=== PATIENT | female | born 1985 | race Asian ===

== ENCOUNTER 2017-07-12 22:28 | Emergency (ER) | payer SELFPAY ==
--- NOTE | 2017-07-12 22:37 | EDM.PDOC ---
ED HPI GENERAL MEDICAL PROBLEM - General Chief Complaint: Skin Complaint Stated Complaint: LT SIDE BUG BITE Time Seen by Provider: 07/12/17 22:30 - History of Present Illness INITIAL COMMENTS - FREE TEXT/NARRATIVE: HISTORY AND PHYSICAL: History of present illness: Patient 32-year-old female presents with a concern of a cutaneous lesion to her right abdomen this is read excoriated in Center tender and swollen she states that over the last several days she denies fever chills nausea vomiting does not recall an insect bite she states she did scratch at it center on an earlier occasion Review of systems: As per history of present illness and below otherwise all systems reviewed and negative. Past medical history: As per history of present illness and as reviewed below otherwise noncontributory. Surgical history: As per history of present illness and as reviewed below otherwise noncontributory. Social history: No reported history of drug or alcohol abuse. Family history: As per history of present illness and as reviewed below otherwise noncontributory. Physical exam: HEENT: Atraumatic, normocephalic, pupils reactive, negative for conjunctival pallor or scleral icterus, mucous membranes moist, throat clear, neck supple, nontender, trachea midline. Lungs: Clear to auscultation, breath sounds equal bilaterally, chest nontender. Heart: S1S2, regular, negative for clicks, rubs, or JVD. Abdomen: Soft, nondistended, patient has approximately 3 cm in diameter erythematous area with induration and a central area of excoriation is no fluctuance is is slightly warm to touch and tender. Negative for masses or hepatosplenomegaly. Negative for costovertebral tenderness. Pelvis: Stable nontender. Genitourinary: Deferred. Rectal: Deferred. Extremities: Atraumatic, negative for cords or calf pain. Neurovascular unremarkable. Neuro: Awake, alert, oriented. Cranial nerves II through XII unremarkable. Cerebellum unremarkable. Motor and sensory unremarkable throughout. Exam nonfocal. Diagnostics: None Therapeutics: None Impression: #1 cellulitis Definitive disposition and diagnosis as appropriate pending reevaluation and review of above. ED ROS GENERAL - Review of Systems Review Of Systems: ROS reveals no pertinent complaints other than HPI. ED EXAM, SKIN/RASH Exam: See Below (See dictation) Departure - Departure Time of Disposition: 22:36 Disposition: Home, Self-Care 01 Condition: Good Clinical Impression: Cellulitis - Discharge Information Additional Instructions: The following information is given to patients seen in the emergency department who are being discharged to home. This information is to outline your options for follow-up care. We provide all patients seen in our emergency department with a follow-up referral. The need for follow-up, as well as the timing and circumstances, are variable depending upon the specifics of your emergency department visit. If you don't have a primary care physician on staff, we will provide you with a referral. We always advise you to contact your personal physician following an emergency department visit to inform them of the circumstance of the visit and for follow-up with them and/or the need for any referrals to a consulting specialist. The emergency department will also refer you to a specialist when appropriate. This referral assures that you have the opportunity for followup care with a specialist. All of these measure are taken in an effort to provide you with optimal care, which includes your followup. Under all circumstances we always encourage you to contact your private physician who remains a resource for coordinating your care. When calling for followup care, please make the office aware that this follow-up is from your recent emergency room visit. If for any reason you are refused follow-up, please contact the [facility] emergency department at and asked to speak to the emergency department charge nurse. [facility] - General Surgery Professional Building [address] [place] [address], [address] [place] [address] Bactrim clindamycin as prescribed follow-up Gen. surgery clinic above call to schedule routine appointment return as needed as discussed
[2017-07-12 22:39] VITALS: BP 111/79
[2017-07-12] MEDS ORDERED: Sulfamethoxazole/Trimethoprim 800-160 MG Tab PO ONE (22:40)
[2017-07-12] MEDS ORDERED: Clindamycin HCl 150 MG Cap PO ONE ×2 (22:41→22:52)
== END 2017-07-12 22:57 | disposition home or self-care (01) ==
LOC: MW.ED 22:28
DX: L03.311 Cellulitis of abdominal wall (principal)
CPT/HCPCS: 99282; A9270

== ENCOUNTER 2019-09-17 17:27 | Emergency (ER) | payer SELFPAY ==
[2019-09-17 17:32] VITALS: PULSE 79
[2019-09-17] MEDS ORDERED: Silver Sulfadiazine 1% Crm 50 GM Tube TOP ONE (17:37)
--- NOTE | 2019-09-17 17:44 | EDM.PDOC ---
ED HPI GENERAL MEDICAL PROBLEM - General Chief Complaint: Skin Complaint Stated Complaint: ALLERGIC REACTION Time Seen by Provider: 09/17/19 17:28 Source of Information: Reports: Patient History Limitations: Reports: No Limitations - History of Present Illness INITIAL COMMENTS - FREE TEXT/NARRATIVE: HISTORY AND PHYSICAL: History of present illness: She has a 34-year-old female presents to the ED today with concern of redness of the hands after using a chemical while at work 4 days ago. 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 Patient states she's been applying Neosporin to the hands without relief of symptoms. Patient denies any other symptoms or concerns. Patient denies fever, chills, chest pain, shortness of breath, or cough. Denies headache, neck stiff ness, change in vision, syncope, or near syncope. Denies nausea, vomiting, abdominal pain, diarrhea, constipation, or dysuria. Has not noted any blood in urine or stool. Patient has been eating and drinking appropriately. Review of systems: As per history of present illness and below otherwise all systems reviewed and negative. Past medical history: As per history of present illness and as reviewed below otherwise noncontributory. Surgical history: As per history of present illness and as reviewed below otherwise noncontributory. Social history: See social history for further information Family history: As per history of present illness and as reviewed below otherwise noncontributory. Physical exam: General: Patient is alert, oriented, and in no acute distress. Patient sitting comfortably on exam table. HEENT: Atraumatic, normocephalic, pupils equal and reactive bilaterally, negative for conjunctival pallor or scleral icterus, mucous membranes moist, TMs normal bilaterally, throat clear, neck supple, nontender, trachea midline. No drooling or trismus noted. No meningeal signs. No hot potato voice noted. Lungs: Clear to auscultation, breath sounds equal bilaterally, chest nontender. Heart: S1S2, regular rate and rhythm without overt murmur Abdomen: Soft, nondistended, nontender. Negative for masses or hepatosplenomegaly. Negative for costovertebral tenderness. Pelvis: Stable nontender. Genitourinary: Deferred. Rectal: Deferred. Skin: See extremities. Otherwise, Intact, warm, dry. No lesions or rashes noted. Extremities: Negative for cords or calf pain. Neurovascular unremarkable. The dorsum of bilateral hands have an erythematous macular rash but not involving the digits. Patient has full range of motion of the complete hand and wrist bilaterally. Radial pulses are grossly intact bilaterally with capillary refill less than 2 seconds. Neuro: Awake, alert, oriented. Cranial nerves II through XII unremarkable. Cerebellum unremarkable. Motor and sensory unremarkable throughout. Exam nonfocal. Notes: Dr. Griffin directly involved in patient care.Discussed the importance for follow -up with a primary care provider or with general surgery. Voices understanding and is agreeable to plan of care. Denies any further questions or concerns at this time. Diagnostics: None Therapeutics: silver nitrate Prescription: None Impression: Chemical dermatitis Plan: 1. You can alternate ibuprofen and Tylenol as directed for pain and discomfort. 2. Follow-up with a primary care provider or general surgery as discussed. Return to the ED as needed and as discussed. Definitive disposition and diagnosis as appropriate pending reevaluation and review of above. bilateral hands Pain Score (Numeric/FACES): 8 - Related Data Allergies Allergy/AdvReac Type Severity Reaction Status Date / Time No Known Allergies Allergy Verified 09/17/19 17:29 Home Meds: Home Meds . [No Known Home Meds] 07/12/17 [History] Past Medical History - Past Health History Medical/Surgical History: Denies Medical/Surgical History - Infectious Disease History Infectious Disease History: Reports: None Social & Family History - Family History Family Medical History: Noncontributory - Tobacco Use Smoking Status *Q: Never Smoker - Recreational Drug Use Recreational Drug Use: No ED ROS GENERAL - Review of Systems Review Of Systems: Comprehensive ROS is negative, except as noted in HPI. ED EXAM, SKIN/RASH Exam: See Below (see dictation) Course - Vital Signs Last Recorded V/S: Last Vital Signs Temp 97.8 F 09/17/19 17:30 Pulse 79 09/17/19 17:30 Resp 18 09/17/19 17:30 BP 139/72 09/17/19 17:30 Pulse Ox 99 09/17/19 17:30 - Orders/Labs/Meds Meds: Medications Discontinued Medications Generic Name Dose Route Start Last Admin Trade Name Jossy PRN Reason Stop Dose Admin Silver Sulfadiazine 1 gm 09/17/19 17:37 Silvadene 1% Cream 50 Gm TOP 09/17/19 17:38 ONETIME ONE Departure - Departure Time of Disposition: 17:40 Disposition: Home, Self-Care 01 Clinical Impression: Chemical dermatitis - Discharge Information Referrals: PCP,Unknown [Primary Care Provider] - Additional Instructions: The following information is given to patients seen in the emergency department who are being discharged to home. This information is to outline your options for follow-up care. We provide all patients seen in our emergency department with a follow-up referral. The need for follow-up, as well as the timing and circumstances, are variable depending upon the specifics of your emergency department visit. If you don't have a primary care physician on staff, we will provide you with a referral. We always advise you to contact your personal physician following an emergency department visit to inform them of the circumstance of the visit and for follow-up with them and/or the need for any referrals to a consulting specialist. The emergency department will also refer you to a specialist when appropriate. This referral assures that you have the opportunity for follow-up care with a specialist. All of these measure are taken in an effort to provide you with optimal care, which includes your follow-up. Under all circumstances we always encourage you to contact your private physician who remains a resource for coordinating your care. When calling for follow-up care, please make the office aware that this follow-up is from your recent emergency room visit. If for any reason you are refused follow-up, please contact the [facility] Emergency Department at and asked to speak to the emergency department charge nurse. [facility] [address], [place] [address] [address] [facility] Special[facility] - General Surgery Professional Building [address] [place] [address], [address] [place] [address] 1. You can alternate ibuprofen and Tylenol as directed for pain and discomfort. 2. Follow-up with a primary care provider or general surgery as discussed. Return to the ED as needed and as discussed.
[2019-09-17 18:07] VITALS: BP 132/79
== END 2019-09-17 17:57 | disposition home or self-care (01) ==
LOC: MW.ED 17:27
DX: T65.891A Toxic effect of other specified substances, accidental (unintentional), initial encounter (principal); L25.3 Unspecified contact dermatitis due to other chemical products; Y99.0 Civilian activity done for income or pay
CPT/HCPCS: 99283; A9270

== ENCOUNTER 2022-05-07 07:32 | Inpatient (IN) | payer SELFPAY ==
[2022-05-07] MEDS: Lactated Ringers 1,000 ML IV SCH ×3 (07:45→15:05)
[2022-05-07] MEDS ORDERED: Misoprostol 200 MCG Tab PO PRN (08:41)
[2022-05-07] MEDS ORDERED: Ondansetron 4 MG/2 ML SDV IVPUSH PRN (08:41)
[2022-05-07] MEDS ORDERED: Sodium Chloride 0.9% 10 ML Syringe FLUSH PRN (08:41)
[2022-05-07] MEDS ORDERED: Carboprost Tromethamine 250 MCG/1 ML Amp IM PRN (08:41)
[2022-05-07] MEDS ORDERED: Tranexamic Acid 1,000 MG in Sodium Chloride 0.9% 100 ML IV PRN (08:41)
[2022-05-07] MEDS ORDERED: Methylergonovine 0.2 MG/1 ML Amp IM PRN (08:41)
[2022-05-07] MEDS ORDERED: Sodium Chloride 0.9% 20 ML SDV IV PRN (08:41)
[2022-05-07] MEDS ORDERED: Lidocaine 1% 50 ML MDV INJECT PRN (08:41)
[2022-05-07] MEDS ORDERED: Butorphanol 1 MG/ML SDV IVPUSH PRN (08:41)
[2022-05-07] MEDS ORDERED: Sodium Chloride 0.9% 2.5 ML Syringe FLUSH PRN (08:41)
[2022-05-07] MEDS ORDERED: Water For Irrigation,Sterile 1,000 ML Container IRR PRN (08:41)
[2022-05-07] MEDS ORDERED: Oxytocin/0.9 % Sodium Chloride 30 UNIT/500 ML BAG IV SCH ×2 (08:45→13:45)
[2022-05-07] MEDS ORDERED: ePHEDrine 50 MG/ML SDV IVPUSH PRN ×2 (09:39)
[2022-05-07] MEDS ORDERED: Ropivacaine HCl/PF 400 MG in Premix Bag 1 BAG EPIDUR SCH (09:45)
[2022-05-07] MEDS ORDERED: Terbutaline 1 MG/ML SDV SUBCUT PRN (13:32)
[2022-05-07] MEDS ORDERED: Oxytocin/0.9 % Sodium Chloride 30 UNIT/500 ML BAG IV ONE (15:10)
[2022-05-07] MEDS ORDERED: Lanolin 100% Cream 7 GM Tube TOP PRN (17:47)
[2022-05-07] MEDS ORDERED: Acetaminophen 500 MG Tab PO PRN ×2 (17:47)
[2022-05-07] MEDS ORDERED: Bisacodyl 10 MG Supp RECTAL PRN (17:47)
[2022-05-07] MEDS ORDERED: oxyCODONE 5 MG Tab PO PRN (17:47)
[2022-05-07] MEDS ORDERED: Witch Hazel Medicated Pads 40/Jar TOP PRN (17:47)
[2022-05-07] MEDS ORDERED: Ibuprofen 800 MG Tab PO PRN (17:47)
[2022-05-07] MEDS ORDERED: Ibuprofen 400 MG Tab PO PRN (17:47)
[2022-05-07] MEDS ORDERED: Docusate Sodium 100 MG Cap PO PRN (17:47)
[2022-05-07] MEDS ORDERED: Benzocaine/Menthol 20%-0.5% Spray 78 GM Cannister TOP PRN (17:47)
[2022-05-08 18:21] VITALS: BP 107/72; PULSE 92
== END 2022-05-08 19:50 | disposition home or self-care (01) | DRG 807 ==
LOC: MW.OBCHECK 07:32 → MW.OB 07:33 → MW.OBCHECK 17:00 → MW.OB 17:00 → OBSVTOIN 17:22 → MW.OB 21:51
PROVIDERS: ADMIT Obstetrics & Gynecology; ATTEND Obstetrics & Gynecology
PROC: 10D07Z6 Extraction of Products of Conception, Vacuum, Via Natural or Artificial Opening (ICD-10-PCS; principal; 2022-05-07)
PROC: 10907ZC Drainage of Amniotic Fluid, Therapeutic from Products of Conception, Via Natural or Artificial Opening (ICD-10-PCS; 2022-05-07)
PROC: 0HQ9XZZ Repair Perineum Skin, External Approach (ICD-10-PCS; 2022-05-07)
PROC: 3E0R3BZ Introduction of Anesthetic Agent into Spinal Canal, Percutaneous Approach (ICD-10-PCS; 2022-05-07)
PROC: 00HU33Z Insertion of Infusion Device into Spinal Canal, Percutaneous Approach (ICD-10-PCS; 2022-05-07)
DX: O76 Abnormality in fetal heart rate and rhythm complicating labor and delivery (principal); Z37.0 Single live birth; O70.0 First degree perineal laceration during delivery; Z3A.38 38 weeks gestation of pregnancy
CPT/HCPCS: 36415; 51702; 59025; 59409; 82803; 85014; 85018; 85027; 86592; 86850; 86900; 86901; A9270-GY; J2370; J2590; J2795; J7120; U0002